=== PATIENT | female | born 1945 | race Caucasian/White ===

== ENCOUNTER 2017-02-03 19:40 | Inpatient (IN) | payer MEDICARE, OTHER ==
[~2017-02-03] VITALS: Ht 157.5 cm; Wt 85.4 kg
[2017-02-03 21:40] VITALS: BP 185/80; PULSE 87; RESP 18; TEMP 97; O2SAT 96
[2017-02-03] MEDS ORDERED: ALUMINUM/MAGNESIUM/SIMETH 30 ML CUP PO PRN ×2 (21:45→22:00)
[2017-02-03] MEDS ORDERED: MAGNESIUM HYDROXIDE SUSP 30 ML CUP PO PRN ×2 (21:45→22:00)
[2017-02-03] MEDS ORDERED: ACETAMINOPHEN 325 MG TAB PO PRN ×2 (21:45→22:00)
[2017-02-03 22:06] VITALS: BP 164/92
[2017-02-04 06:37] VITALS: BP 172/88; PULSE 84; RESP 18; TEMP 97.6; O2SAT 95
[2017-02-04] MEDS ORDERED: NICOTINE 21 MG/24 HR PATCH T-DERMAL SCH (09:00)
[2017-02-04] MEDS ORDERED: cloNIDine HCL 0.1 MG TAB PO SCH (09:00)
[2017-02-04] MEDS: cloNIDine HCL 0.1 MG TAB PO SCH ×3 (09:00→20:48)
[2017-02-04] MEDS: NICOTINE 21 MG/24 HR PATCH T-DERMAL SCH (09:00)
[2017-02-04] MEDS: LISINOPRIL 20 MG TAB PO SCH (09:00)
[2017-02-04] MEDS ORDERED: LISINOPRIL 20 MG TAB PO SCH (09:00)
[2017-02-04 09:01] LABS: ANION GAP 10 MEQ/L (5-15); BICARBONATE 25.3 MEQ/L (21.0-32.0); BLOOD UREA NITROGEN 12 MG/DL (7-18); CHLORIDE 105 MEQ/L (98-107); GLOMERULAR FILTRATION RATE 56 ML/MIN (>89); HDL CHOLESTEROL 45.4 MG/DL (40.0-60.0); LDL CHOLESTEROL 63 MG/DL (0-99); POTASSIUM 3.9 MEQ/L (3.5-5.1); SODIUM (NA) 140 MEQ/L (136-145)
[2017-02-04] MEDS ORDERED: cloNIDine HCL 0.1 MG TAB PO PRN (11:45)
[2017-02-04 12:14] VITALS: BP 160/82; PULSE 82; RESP 16
--- NOTE | 2017-02-04 14:31 | PD.CONS ---
HPI Service [facility] Consult Requested By Psychiatry team Reason for Consult Assist with medical management Primary Care Physician Non-Staff Thuy GARNICA, NSB Diagnoses: History of Present Illness Patient is a 71-year-old female with primary medical history of major depressive disorder, HTN, borderline DM, HLD, GERD who came in as a transfer from [facility] for unintentional overdose on her medication - benzo. She is now admitted to inpatient psychiatry unit for further evaluation. Consulted for medical management. Patient seen and examined today. Verified all her medical history. States she is feeling better. Denies pain and discomfort. Denies SOB/ dyspnea. Denies chest pain, palpitations, headaches, dizziness. Denies fevers, chills, n/v/d. Review of Systems Except as stated in HPI: all other systems reviewed are Neg Past Family Social History Allergies: Coded Allergies: No Known Allergies (Unverified , 02/04/17) Past Medical History HTN Borderline DM - on metformin HLD GERD Major depressive disorder Past Surgical History Hysterectomy Tonsillectomy EGD/colonoscopy Reported Medications Lisinopril Metformin Simvastatin Omeprazole Family History Both . Mother had bipolar disorder, breast cancer. Father had lung cancer. Social History Rare alcohol use Former smoker, quit 6 months ago 07/2016, 10/12-1 PPD Denies recent illicit drug use - tried cocaine in the s Physical Exam Vital Signs Vital Signs Date Time Temp Pulse Resp B/P Pulse Ox O2 Delivery O2 Flow Rate FiO2 02/04/17 12:14 82 16 160/82 02/04/17 06:37 97.6 84 18 172/88 95 02/03/17 22:06 164/92 02/03/17 21:40 97.0 87 18 185/80 96 Physical Exam GENERAL: This is a well-nourished, well-developed patient, in no apparent distress. SKIN: No rashes, ecchymoses or lesions. Warm and dry. HEAD: Atraumatic. Normocephalic. No temporal or scalp tenderness. EYES: Pupils equal round and reactive. Extraocular motions intact. No scleral icterus. No injection or drainage. ENT: Nose without bleeding. Throat without erythema. Uvula midline. Airway patent. NECK: Trachea midline. No JVD or lymphadenopathy. Supple, nontender, no meningeal signs. CARDIOVASCULAR: Regular rate and rhythm without murmurs, gallops, or rubs. RESPIRATORY: Clear to auscultation. Breath sounds equal bilaterally. No wheezes , rales, or rhonchi. GASTROINTESTINAL: Abdomen soft, non-tender, nondistended. No hepato-splenomegaly , or palpable masses. No guarding. MUSCULOSKELETAL: Extremities without clubbing, cyanosis, bilateral lower extremity trace edema. No joint tenderness, effusion, or edema noted. NEUROLOGICAL: Awake and alert. Oriented to place, self, time, situation. Motor and sensory grossly within normal limits. No focal neuro deficit. Normal speech. Laboratory Laboratory Tests Test 02/04/17 07:43 Sodium Level 140 Potassium Level 3.9 Chloride Level 105 Carbon Dioxide Level 25.3 Anion Gap 10 Blood Urea Nitrogen 12 Creatinine 0.98 Estimat Glomerular Filtration 56 Rate Random Glucose 145 Calcium Level 9.4 Triglycerides Level 161 Cholesterol Level 141 LDL Cholesterol 63 HDL Cholesterol 45.4 Cholesterol/HDL Ratio 3.10 Result Diagram: 02/04/17 0743 Assessment and Plan Problem List: (1) HTN (hypertension) ICD Code: I10 Status: Chronic (2) HLD (hyperlipidemia) ICD Code: E78.5 Status: Chronic (3) Borderline type 2 diabetes mellitus ICD Code: R73.03 Status: Chronic Assessment and Plan Patient is a 71-year-old female with primary medical history of major depressive disorder, HTN, borderline DM, HLD, GERD who came in as a transfer from [facility] for unintentional overdose on her medication - benzo. She is now admitted to inpatient psychiatry unit for further evaluation. Consulted for medical management. Overdose, major depressive disorder - managed by psychiatry team HTN - Restart home medication, lisinopril 20 mg daily, clonidine 0.1 mg every 6 hours when necessary - Monitor BP trend HLD - Restart home medication patient is on simvastatin, will do formulary atorvastatin DM 2 - Borderline. Has been on metformin 500 mg twice a day with hemoglobin A1c being checked by PCP Thuy Campos every 6 months - Check hemoglobin A1c -Restart medication GERD - Pantoprazole 20 mg daily Thank you for this consultation. We will follow patient with you. Written by Devin Khoury, acting as scribe for Dr. Childress on 02/04/17 at 14: 31. This note was transcribed by scribe [ Devin Khoury]. I, Dr. Ray Childress personally performed the history, physical exam, and medical decision making; and confirmed the accuracy of the information in the transcribed note. Authenticated by Dr. Ray Childress on 02/04/17 at 17:43. Code Status Full code Discussed Condition With Patient, nursing MarielosSukhwindernelly BUNCH Feb 04, 2017 14:31 Ray Childress MD Feb 04, 2017 17:43
[2017-02-04] MEDS: PANTOPRAZOLE SOD 20 MG DELAYED RELEASE TAB PO SCH (14:45)
--- NOTE | 2017-02-04 15:01 | HHI.HP ---
Provisional Diagnosis Admission Date Feb 03, 2017 at 21:20 [place] I. 1. Adjustment disorder with disturbance of emotions and conduct Rule out underlying depressive disorder [place] II. Deferred [place] V. GAF is 40 presently Certification of Person's Competence To Provide Express and Informed Consent I have personally examined Hong Earl , a person being served at [facility] on, Feb 04, 2017 15:01. Express and informed consent means consent voluntarily given in writing, by a competent person, after sufficient explanation and disclosure of the subject matter involved to enable the person to make a knowing and willful decision without any element of force, fraud, deceit, duress, or other form of constraint or coercion. This person is 18 years of age or older, is not now known to be incompetent to consent to treatment with a guardian advocate, and does not have a health care surrogate or proxy currently making medical treatment decisions. I have found this person to be one of the following: [x] Competent to provide express and informed consent, as defined above, for voluntary admission to this facility and is competent to provide express and informed consent for treatment. He/she has the consistent capacity to make well reasoned, willful, and knowing decisions concerning his or her medical or mental health treatment. The person fully and consistently understands the purpose of the admission for examination/placement and is fully capable of personally exercising all rights assured under [place] Incompetent to provide express and informed consent to voluntary admission, and this is incompetent to provide express and informed consent to treatment. The person must be transferred to involuntary status and a petition for a guardian advocate filed with the Circuit Court. [] Refusing to provide express and informed consent to voluntary admission but is competent to provide express and informed consent for treatment. The person must be discharged or transferred to involuntary status. Form shall be completed within 24 hours of a person's arrival at the receiving facility and filed in the clinical record of each person: 1. Admitted on a voluntary basis 2. Permitted to provide express and informed consent to his/her own treatment 3. Allowed to transfer from involuntary to voluntary status 4. Prior to permitting a person to consent to his or her own treatment after having been previously found incompetent to consent to treatment. History of Present Illness Capacity: Has Capacity HPI Ms. Delacruz is a 71-year-old female with no reported past psychiatric history who presents in transfer from [facility] under a Aleman act following a sedative hypnotic overdose. Patient was admitted to [facility] on the of this month. Documentation from [facility] reviewed. Patient was apparently fairly encephalopathic initially, although her mentation subsequently cleared. Reviewing our own electronic medical record, I see no prior psychiatric contact within our system. Patient seen and examined with nurse. Chart reviewed. Case discussed with nursing staff. On my examination today, the patient presents as fairly upbeat. She says that she made her overdose because of an accumulation of psychosocial stressors. In particular she says that there are several things around the house that need repaired and she does not have the money for this. She says that she has been thinking about making a suicide attempt for the last 6 weeks or so. She says that she has some Restoril on hand because her sleep is chronically poor, and she overdosed on about 29 Restoril tablets. She says that she was able to make this attempt even though her significant other was in the home because they sleep in separate rooms. She says that she put down plastic on the bed before taking the overdose so that she would "not leave a mess." Having survived her overdose she denies any ongoing suicidal ideation, intent or plan. She says that she believes there must be "a purpose for me to still be here." She denies low mood or anhedonia. I can elicit no feelings of hopelessness, worthlessness or morbid guilt. She does feel somewhat overwhelmed still. Sleep remains a challenge. No reported appetite difficulties. No hypomanic or manic symptoms. No audiovisual hallucinations. No evident delusions. The remainder of the psychiatric ROS is negative. Past psychiatric history: The patient denies a history of psychiatric diagnosis. She denies a history of inpatient or outpatient psychiatric treatment. She denies a history of suicide attempts. Review of Systems Except as stated in HPI: all other systems reviewed are Neg Other No reported headache, vision or hearing changes, chest pain, shortness of breath , bowel or bladder issues. No other physical complaints. Past Psych History Psychological trauma history No reported trauma history Violence risk - others (6 mos) Lower imminent risk. No homicidal ideation. No known history of violence. Violence risk - self (6 mos) Indeterminate. Patient did present initially with a serious overdose but seems to reconstituted nicely. She presently denies any suicidal ideation. She denies any personal history of suicide attempts. She does have a family history of suicide attempts and 2 maternal uncles. Substance Abuse History Drugs/Alcohol past 12 months Patient denies any current abuse of drugs or alcohol. She does admit to a history of heavy drinking in the remote past as well as experimentation with cocaine. Past Family Social History Coded Allergies: No Known Allergies (Unverified , 02/04/17) Past Medical History See electronic medical record Current Medications Medications (Trade) Dose Ordered Sig/Dorian Route Start Time Stop Time Status Last Admin (Tylenol) 650 mg Q4H PRN PO 02/03/17 21:45 (Milk Of Magnesia Liq) 30 ml DAILY PRN PO 02/03/17 21:45 02/04/17 06:29 (Mag-Al Plus Susp Liq) 30 ml Q6H PRN PO 02/03/17 21:45 (Habitrol 21 Mg Patch.24 Hr) 1 patch DAILY T-DERMAL 02/04/17 09:00 Miscellaneous Information 1 HS T-DERMAL 02/04/17 21:00 (Prinivil) 20 mg DAILY PO 02/04/17 09:00 02/04/17 09:00 (Catapres) 0.1 mg DAILY@,,21 PO 02/04/17 09:00 02/04/17 09:00 (Catapres) 0.1 mg Q6H PRN PO 02/04/17 11:45 (Glucophage) 500 mg BIDPC PO 02/04/17 18:00 (Protonix) 20 mg DAILY PO 02/04/17 14:45 (Lipitor) 20 mg HS PO 02/04/17 21:00 Family History Patient reports that her mother had bipolar disorder and her father had depression. She denies any family history of substance use disorder. She reports that 2 of her maternal uncles both completed suicide. No other family psychiatric history. Social History Patient resides in [place]. She has been living with her significant other for the past 31 years. She is previously twice. She has 4 children, 7 grandchildren and 1 great grandchild. 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 She denies any or legal history. Denies any access to guns or firearms. She says that she has lost some of her previous temple beliefs because of life adversity. Patient's Strengths (min. 2) Intelligent. Verbally fluent. Physical Exam Physical examination completed by hospitalist research consultant. On my examination today, patient appears to be well-nourished and well-developed and in no acute physical distress. No motoric abnormalities noted. Laboratories and vital signs reviewed: Vital Signs Vital Signs Date Time Temp Pulse Resp B/P Pulse Ox O2 Delivery O2 Flow Rate FiO2 02/04/17 12:14 82 16 160/82 02/04/17 06:37 97.6 95 Lab Results Item Value Date Time Sodium Level 140 MEQ/L 02/04/17 0743 Potassium Level 3.9 MEQ/L 02/04/17 0743 Chloride Level 105 MEQ/L 02/04/17 0743 Carbon Dioxide Level 25.3 MEQ/L 02/04/17 0743 Blood Urea Nitrogen 12 MG/DL 02/04/17 0743 Creatinine 0.98 MG/DL 02/04/17 0743 Random Glucose 145 MG/DL H 02/04/17 0743 Laboratories from outside hospital reviewed: CBC from the is unremarkable. Urine toxicology on initial presentation at outside hospital was positive only for benzodiazepines. Alcohol level was undetectable. Urinalysis at outside hospital was bland. Blood cultures were no growth 3 days. MRI of the brain revealed minimal periventricular and subcortical chronic small vessel disease. Mental Status Examination Patient is in hospital gown. She is well groomed. She is awake and alert and oriented 3. No motor abnormalities noted. Speech is within normal limits for rate, tone and volume. Language and fund of knowledge seemed average to a slightly above average. Memory seems intact on clinical exam. Mood is reportedly fair and affect remains full and reactive. Thought process linear. No loosening of associations. No evident delusions. Denies audiovisual hallucinations. Denies suicidal or homicidal ideation, intent or plan. Insight and judgment are unclear at present. Assessment & Plan Problem List: (1) Adjustment disorder ICD Code: F43.20 Assessment & Plan This is a 71-year-old female who presents in transfer from outside hospital under a Aleman act following a sedative hypnotic overdose. Patient reports that she made the overdose in response to the accumulation of psychosocial stressors. She does admit to feeling somewhat overwhelmed by the stressors and admits that her sleep is chronically poor. The patient denies ongoing suicidal ideation but certainly bears admission for observation given the severity of the presenting overdose. This will also hopefully allow us to determine if there is some degree of underlying depressive diathesis, although the patient denies depressive symptomatology to any significant degree now. Admit inpatient. Voluntary status. Consult with the hospitalist, who have adjusted patient's medical medications. Consult to the physical therapist. PT eval. Fall precautions. At low dose Remeron as this will help with sleep and may also treat any underlying depressive disorder. Atarax as needed for anxiety. Melatonin as needed for sleep. Vitals every shift. Counselor to see. Collateral. Disposition planning. Estimated length of stay: 3-5 days. Discharge Planning Pending outcome of observation Request HC Surrog/Guard Advoc?: No Problem Qualifiers (1) Adjustment disorder: Qualified Code: F43.25 - Adjustment disorder with mixed disturbance of emotions and conduct Raul Gray MD Feb 04, 2017 15:01
[2017-02-04] MEDS ORDERED: hydrOXYzine HCL 25 MG TAB PO PRN (16:00)
[2017-02-04] MEDS: metFORMIN HCL 500 MG TAB PO SCH (16:19)
[2017-02-04 16:29] LABS: HEMOGLOBIN A1a 1.2 %; HEMOGLOBIN A1b 0.9 %; HEMOGLOBIN Ao 83.8 %; HEMOGLOBIN F 1.7 %; HEMOGLOBIN LA1C 2.2 %; HEMOGLOBIN P3 3.7 %
[2017-02-04 18:40] VITALS: BP 155/72; PULSE 100; RESP 19; TEMP 97.5; O2SAT 96
[2017-02-04] MEDS: REMOVE OLD NICOTINE PATCH T-DERMAL SCH (20:12)
[2017-02-04] MEDS: MELATONIN 5 MG TAB PO PRN (20:47)
[2017-02-04] MEDS: MIRTAZAPINE 15 MG TAB PO SCH (20:49)
[2017-02-04] MEDS: ATORVASTATIN 20 MG TAB PO SCH (20:49)
[2017-02-04] MEDS ORDERED: REMOVE OLD NICOTINE PATCH T-DERMAL SCH (21:00)
[2017-02-05 06:12] VITALS: BP 138/63; PULSE 71; RESP 16; TEMP 96.9; O2SAT 98
[2017-02-05] MEDS: cloNIDine HCL 0.1 MG TAB PO SCH ×3 (08:59→21:01)
[2017-02-05] MEDS: LISINOPRIL 20 MG TAB PO SCH (08:59)
[2017-02-05] MEDS: PANTOPRAZOLE SOD 20 MG DELAYED RELEASE TAB PO SCH (08:59)
[2017-02-05] MEDS: metFORMIN HCL 500 MG TAB PO SCH ×2 (08:59→17:47)
[2017-02-05] MEDS: NICOTINE 21 MG/24 HR PATCH T-DERMAL SCH (09:00)
--- NOTE | 2017-02-05 13:45 | HHI.PR ---
Subjective Remarks Follow up visit HTN, borderline DM, HLD, GERD. Pt. seen and examined today. Reports she is doing well. She feels "foggy." States she got melatonin last night. Otherwise, denies pain and discomfort. Denies SOB/ dyspnea. Denies chest pain, palpitations, headaches, dizziness. Denies fevers, chills, n/v/d. Objective Vitals Vital Signs Date Time Temp Pulse Resp B/P Pulse Ox O2 Delivery O2 Flow Rate FiO2 02/05/17 06:12 96.9 71 16 138/63 98 02/04/17 18:40 97.5 100 19 155/72 96 I/O 02/04/17 02/04/17 02/04/17 02/05/17 02/05/17 02/05/17 07:00 15:00 23:00 07:00 15:00 23:00 Intake Total 0 ml 960 ml 0 ml Balance 0 ml 960 ml 0 ml Intake Oral 0 ml 960 ml 0 ml # Voids 1 1 0 Result Diagram: 02/04/17 0743 Objective Remarks GENERAL: This is a well-nourished, well-developed patient, in no apparent distress. SKIN: No rashes, ecchymoses or lesions. Warm and dry. HEAD: Atraumatic. Normocephalic. No temporal or scalp tenderness. EYES: Pupils equal round and reactive. Extraocular motions intact. No scleral icterus. No injection or drainage. ENT: Nose without bleeding. Throat without erythema. Uvula midline. Airway patent. NECK: Trachea midline. No JVD or lymphadenopathy. Supple, nontender, no meningeal signs. CARDIOVASCULAR: Regular rate and rhythm without murmurs, gallops, or rubs. RESPIRATORY: Clear to auscultation. Breath sounds equal bilaterally. No wheezes , rales, or rhonchi. GASTROINTESTINAL: Abdomen soft, non-tender, nondistended. No hepato-splenomegaly , or palpable masses. No guarding. MUSCULOSKELETAL: Extremities without clubbing, cyanosis, bilateral lower extremity trace edema. No joint tenderness, effusion, or edema noted. NEUROLOGICAL: Awake and alert. Oriented to place, self, time, situation. Motor and sensory grossly within normal limits. No focal neuro deficit. Normal speech. A/P Problem List: (1) HTN (hypertension) ICD Code: I10 Status: Chronic (2) HLD (hyperlipidemia) ICD Code: E78.5 Status: Chronic (3) Borderline type 2 diabetes mellitus ICD Code: R73.03 Status: Chronic Assessment and Plan Patient is a 71-year-old female with primary medical history of major depressive disorder, HTN, borderline DM, HLD, GERD who came in as a transfer from [facility] for unintentional overdose on her medication - benzo. She is now admitted to inpatient psychiatry unit for further evaluation. Consulted for medical management. Overdose, major depressive disorder - managed by psychiatry team HTN - Restart home medication, lisinopril 20 mg daily, clonidine 0.1 mg every 6 hours when necessary - BP trend HLD - Restart home medication patient is on simvastatin, will do formulary atorvastatin DM 2 - Borderline. Has been on metformin 500 mg twice a day with hemoglobin A1c being checked by PCP Thuy Campos every 6 months - Hemoglobin A1c 6.1 GERD - Pantoprazole 20 mg daily Discuss with patient, nursing, Dr. Monroe Weber from Hospitalist standpoint. We will sign off. Reconsult as needed. Devin Arceo Feb 05, 2017 13:45
--- NOTE | 2017-02-05 14:45 | HHI.PYPN ---
Subjective Remarks Patient seen and examined. Chart reviewed. Case discussed with nursing staff who reports patient has been a behavioral problem. On my examination today, the patient seems to be in good spirits. She says that she slept "wonderfully" last night. She denies any suicidal ideation, intent or plan. She says "I've come to the conclusion that there is a reason that I'm still here." She says that she had a visit with her son today, which went well. Denies side effects from medications. Does complain of a mild headache and requests Tylenol. Review of Systems Except as stated in HPI: all other systems reviewed are Neg Objective Alert: Yes [place]: Person, Place, Date, Situation Mood: Calm Affect: Appropriate Memory Intact: Comment (intact on clinical exam) Hallucinations: Other (no AVH) Delusions: No Delusion Type: Other (no delusions elicited) Suicidal: Ideation (denies suicidal ideation) Homicidal: Ideation (no homicidal ideation) Insight/Judgment Fair Remarks No motor abnormalities noted. Thought process linear. Grooming and hygiene good. Labs Labs reviewed. Vitals/IOs Vital Signs Date Time Temp Pulse Resp B/P Pulse Ox O2 Delivery O2 Flow Rate FiO2 02/05/17 06:12 96.9 71 16 138/63 98 Intake and Output 02/04/17 02/04/17 02/05/17 08:00 16:00 00:00 Intake Total 0 ml 960 ml Balance 0 ml 960 ml Assessment & Plan Problem List: (1) Adjustment disorder ICD Code: F43.20 Assessment & Plan Continue Remeron as ordered. Counselor to obtain collateral. Continue to monitor through the weekend on the inpatient unit. Continue other medications and care as ordered. Justification for Cont. Inpt. Monitoring for impairments in safety. Discharge Planning Monitor over the weekend. Anticipate discharge Wednesday barring some clinical deterioration. Request HC Surrog/Guard Advoc?: No Problem Qualifiers (1) Adjustment disorder: Qualified Code: F43.25 - Adjustment disorder with mixed disturbance of emotions and conduct Raul Gray MD Feb 05, 2017 14:45
[2017-02-05 18:00] VITALS: BP 157/74; PULSE 79; RESP 18; TEMP 97.6; O2SAT 99
[2017-02-05] MEDS: REMOVE OLD NICOTINE PATCH T-DERMAL SCH (21:00)
[2017-02-05] MEDS: MIRTAZAPINE 15 MG TAB PO SCH (21:01)
[2017-02-05] MEDS: ATORVASTATIN 20 MG TAB PO SCH (21:01)
[2017-02-05] MEDS: MELATONIN 5 MG TAB PO PRN (21:01)
[2017-02-06 06:22] VITALS: BP 139/67; PULSE 67; RESP 16; TEMP 97.9; O2SAT 97
[2017-02-06] MEDS: cloNIDine HCL 0.1 MG TAB PO SCH ×3 (08:35→20:47)
[2017-02-06] MEDS: PANTOPRAZOLE SOD 20 MG DELAYED RELEASE TAB PO SCH (08:35)
[2017-02-06] MEDS: LISINOPRIL 20 MG TAB PO SCH (08:35)
[2017-02-06] MEDS: metFORMIN HCL 500 MG TAB PO SCH ×2 (08:35→17:39)
[2017-02-06] MEDS: NICOTINE 21 MG/24 HR PATCH T-DERMAL SCH (08:53)
--- NOTE | 2017-02-06 11:24 | HHI.PYPN ---
Subjective Remarks Pt seen and discussed with staff. Pt reports that she is feeling better today and denies SI/HI. She states that she has been contemplating recent OD and believes that she survived because she is supposed to be alive for some purpose. She states that this has given her comfort and she is now not feeling overwhelmed and hopeless anymore. She states that her son flew from out of state to visit and she is looking forward to seeing him today. She denies SI/ HI. She states that she would like to see a therapist but is concerned about finding one in her area due to limited transportation options. Objective Alert: Yes [place]: Person, Place, Date, Situation Mood: Calm Affect: Appropriate Memory Intact: Immediate, Recent, Remote Hallucinations: Other (no AVH) Delusions: No Delusion Type: Other (no delusions elicited) Suicidal: Ideation (denies suicidal ideation) Homicidal: Ideation (no homicidal ideation) Insight/Judgment fair Vitals/IOs Vital Signs Date Time Temp Pulse Resp B/P Pulse Ox O2 Delivery O2 Flow Rate FiO2 02/06/17 06:22 97.9 67 16 139/67 97 Intake and Output 02/05/17 02/05/17 02/06/17 08:00 16:00 00:00 Intake Total 0 ml 480 ml Balance 0 ml 480 ml Assessment & Plan Problem List: (1) Adjustment disorder ICD Code: F43.20 Assessment & Plan Pt improving. continue current tx plan. Estimated LOS: days Justification for Cont. Inpt. monitoring for safety Request HC Surrog/Guard Advoc?: No Problem Qualifiers (1) Adjustment disorder: Qualified Code: F43.25 - Adjustment disorder with mixed disturbance of emotions and conduct Lorin Comer MD Feb 06, 2017 11:24
[2017-02-06 18:08] VITALS: BP 140/66; PULSE 79; RESP 18; TEMP 97; O2SAT 96
[2017-02-06] MEDS: ATORVASTATIN 20 MG TAB PO SCH (20:47)
[2017-02-06] MEDS: MIRTAZAPINE 15 MG TAB PO SCH (20:47)
[2017-02-06] MEDS: REMOVE OLD NICOTINE PATCH T-DERMAL SCH (20:47)
[2017-02-07 05:36] VITALS: BP 126/59; PULSE 76; RESP 16; TEMP 97.1; O2SAT 95
[2017-02-07 06:03] VITALS: PULSE 76; RESP 16; TEMP 97.1
[2017-02-07] MEDS: metFORMIN HCL 500 MG TAB PO SCH ×2 (08:38→17:34)
[2017-02-07] MEDS: PANTOPRAZOLE SOD 20 MG DELAYED RELEASE TAB PO SCH (08:39)
[2017-02-07] MEDS: NICOTINE 21 MG/24 HR PATCH T-DERMAL SCH (09:00)
[2017-02-07] MEDS: cloNIDine HCL 0.1 MG TAB PO SCH ×3 (09:00→20:31)
[2017-02-07] MEDS: LISINOPRIL 20 MG TAB PO SCH (09:00)
--- NOTE | 2017-02-07 12:24 | HHI.PYPN ---
Subjective Remarks Pt seen and discussed with staff. She reports that mood is good and she denies SI/HI. She reports good visit with family yesterday and is looking forward to visit today. She reports that she slept well last night. Objective Alert: Yes [place]: Person, Place, Date, Situation Mood: Calm Affect: Restricted Memory Intact: Immediate, Recent, Remote Hallucinations: Other (no AVH) Delusions: No Delusion Type: Other (no delusions elicited) Suicidal: Ideation (denies suicidal ideation) Homicidal: Ideation (no homicidal ideation) Insight/Judgment fair Vitals/IOs Vital Signs Date Time Temp Pulse Resp B/P Pulse Ox O2 Delivery O2 Flow Rate FiO2 02/07/17 06:03 97.1 76 16 02/07/17 05:36 126/59 95 Intake and Output 02/06/17 02/06/17 02/07/17 08:00 16:00 00:00 Intake Total 2640 ml Balance 2640 ml Assessment & Plan Problem List: (1) Adjustment disorder ICD Code: F43.20 Assessment & Plan Continue current tx plan. Estimated LOS: days Justification for Cont. Inpt. monitoring for safety. risk of decompensation Request HC Surrog/Guard Advoc?: No Problem Qualifiers (1) Adjustment disorder: Qualified Code: F43.25 - Adjustment disorder with mixed disturbance of emotions and conduct Lorin Comer MD Feb 07, 2017 12:24
[2017-02-07 19:27] VITALS: BP 134/65; PULSE 74; RESP 16; TEMP 98.2
[2017-02-07] MEDS: ATORVASTATIN 20 MG TAB PO SCH (20:31)
[2017-02-07] MEDS: MIRTAZAPINE 15 MG TAB PO SCH (20:31)
[2017-02-07] MEDS: MELATONIN 5 MG TAB PO PRN (20:31)
[2017-02-07] MEDS: REMOVE OLD NICOTINE PATCH T-DERMAL SCH (20:32)
[2017-02-08 05:44] VITALS: BP 146/78; PULSE 82; RESP 17; TEMP 97.6; O2SAT 97
[2017-02-08 06:00] VITALS: BP 146/78; PULSE 82; RESP 17; TEMP 97.6; O2SAT 97
[2017-02-08] MEDS: LISINOPRIL 20 MG TAB PO SCH (08:54)
[2017-02-08] MEDS: cloNIDine HCL 0.1 MG TAB PO SCH (08:54)
[2017-02-08] MEDS: metFORMIN HCL 500 MG TAB PO SCH (08:54)
[2017-02-08] MEDS: PANTOPRAZOLE SOD 20 MG DELAYED RELEASE TAB PO SCH (08:55)
[2017-02-08] MEDS: NICOTINE 21 MG/24 HR PATCH T-DERMAL SCH (08:56)
[2017-02-08] MEDS ORDERED: MIRTA15 PO (11:31)
[2017-02-08] MEDS ORDERED: PANT20 PO (11:31)
[2017-02-08] MEDS ORDERED: CLON.1 PO (11:31)
[2017-02-08] MEDS ORDERED: ATOR20TA15 PO (11:31)
[2017-02-08] MEDS ORDERED: LISI-515 PO (11:31)
[2017-02-08] MEDS ORDERED: METF500 PO (11:31)
--- NOTE | 2017-02-08 11:32 | HHI.DS ---
Psychiatry Discharge Summary Inpatient Psychiatric care?: Yes Advance Directive: No Reason Not Provided: pt unsure Mental Health AdvanceDirective: No Health Care Proxy: No Admission Admission Date Feb 03, 2017 at 21:20 Admission Diagnosis: (1) Adjustment disorder ICD Code: F43.20 Brief History Ms. Delacruz is a 71-year-old female with no reported past psychiatric history who presents in transfer from [facility] under a Aleman act following a sedative hypnotic overdose. Patient was admitted to [facility] on the of this month. Documentation from [facility] reviewed. Patient was apparently fairly encephalopathic initially, although her mentation subsequently cleared. Reviewing our own electronic medical record, I see no prior psychiatric contact within our system. Patient seen and examined with nurse. Chart reviewed. Case discussed with nursing staff. On my examination today, the patient presents as fairly upbeat. She says that she made her overdose because of an accumulation of psychosocial stressors. In particular she says that there are several things around the house that need repaired and she does not have the money for this. She says that she has been thinking about making a suicide attempt for the last 6 weeks or so. She says that she has some Restoril on hand because her sleep is chronically poor, and she overdosed on about 29 Restoril tablets. She says that she was able to make this attempt even though her significant other was in the home because they sleep in separate rooms. She says that she put down plastic on the bed before taking the overdose so that she would "not leave a mess." Having survived her overdose she denies any ongoing suicidal ideation, intent or plan. She says that she believes there must be "a purpose for me to still be here." She denies low mood or anhedonia. I can elicit no feelings of hopelessness, worthlessness or morbid guilt. She does feel somewhat overwhelmed still. Sleep remains a challenge. No reported appetite difficulties. No hypomanic or manic symptoms. No audiovisual hallucinations. No evident delusions. The remainder of the psychiatric ROS is negative. Past psychiatric history: The patient denies a history of psychiatric diagnosis. She denies a history of inpatient or outpatient psychiatric treatment. She denies a history of suicide attempts. Tobacco Use In Past 30 Days: No Tobacco Past 30 Days Alcohol Use: Never Hospital Course Patient was admitted to a locked, inpatient psychiatric unit. Appropriate precautions were in place throughout patient's hospital stay. A general medical consultation was obtained. Patient was seen and examined daily on the unit by psychiatry and also visited by counselor. Medications were adjusted. Patient tolerated medications well. There was no evidence of any suicidality or homicidality on the unit. Patient remained in good behavioral control. Charting indicates that the patient has been sleeping and eating well and participating in unit activities to a fair degree. Counselor has obtain reassuring collateral from patient's partner. On the day of discharge: Patient seen and examined. Chart reviewed. Case discussed with nursing staff who reports patient has been a behavioral problem. On my examination today, the patient is in good spirits. Her affect is bright and euthymic. She is requesting discharge from the inpatient psychiatric unit today. She denies any suicidal or homicidal ideation, intent or plan on direct questioning. Mood is reportedly improved. No depressive or hypomanic/manic symptoms at this time. No audiovisual hallucinations, and I can elicit no delusional beliefs. She is future oriented and optimistic. She denies significant side effects from medications but would like to see if her Remeron could be tapered somewhat as it does leave her feeling somewhat "dopey" in the mornings, and I will taper to 7.5mg qHS. No physical complaints. Weighing the acute, chronic, and protective factors and based on the available evidence, I drawer in stitch bonding machine to a reasonable degree of medical certainty that the patient is at low imminent risk of harm to self or others from a mental illness as defined under the Aleman act and her level of function is adequate for outpatient care. Consequently, the patient does not meet criteria for involuntary psychiatric hospitalization at this time. Given that the patient is requesting discharge from the inpatient psychiatric unit and does not meet criteria for involuntary psychiatric hospitalization, I must arrange for her discharge home today with psychiatric follow-up as arranged by counselor. Patient is also to follow-up with primary care. I have counseled the patient regarding warning signs for need to return to the psychiatric emergency room as part of the general safety plan. Results Blood Pressure 146 / 78 Vital Signs Date Time Temp Pulse Resp B/P Pulse Ox O2 Delivery O2 Flow Rate FiO2 02/08/17 06:00 97.6 82 17 146/78 97 Laboratory Results Test 02/04/17 07:43 Hemoglobin A1c 6.1 % (4.3-6.0) Triglycerides Level 161 MG/DL (42-150) Cholesterol Level 141 MG/DL (120-200) LDL Cholesterol 63 MG/DL (0-99) HDL Cholesterol 45.4 MG/DL (40.0-60.0) Summary of Procedures None done Imaging None done Pending results at discharge: No Medications # of Antipsychotic meds at D/C: 0 Approp Antipsych med options 1 - Minimum of three failed multiple trials of monotherapy. 2 - Documented plan to taper to monotherapy due to previous use of multiple meds OR cross-taper in progress at D/C. 3 - Documentation of augmentation of Clozapine. 4 - Justification other than those listed in allowable values 1-3, document here : Discharge Discharge Date: February 08, 2017 Discharge Diagnosis: (1) Adjustment disorder Diagnosis: Principal (resolved) ICD Code: F43.20 GAF on discharge is 60 Mental Status Exam at Disch Patient is casually dressed. She is well groomed and maintaining basic hygiene. She is awake and alert and oriented 3. No evidence of delirium. No abnormal motor movements noted. Speech is within normal limits for rate, tone and volume. Memory is intact. Language and fund of knowledge seem at least average. Mood is euthymic and affect is full and reactive. Thought process linear. No loosening of associations. No evident delusions. No audiovisual hallucinations. Denies suicidal or homicidal ideation, intent or plan. Insight and judgment are fair. Pt Condition on Discharge: Stable Discharge Disposition: Discharge Home Discharge Instructions Diet Instructions: Heart Healthy Diet Activities you can perform: Weight Bearing as Mary Scheduled Appointment: as per counselor's notes New Medications: Atorvastatin (Atorvastatin) 20 Mg Tab 20 MG PO HS Cholesterol Management Days 15 Ref 1 TAB Clonidine (Catapres) 0.1 Mg Tab 0.1 MG PO DAILY@09,17,21 Blood Pressure Management Days 15 Ref 1 TAB Lisinopril (Lisinopril) 20 Mg Tab 20 MG PO DAILY Blood Pressure Management Days 15 Ref 1 TAB Metformin (Glucophage) 500 Mg Tab 500 MG PO BIDPC Blood Sugar Management Days 15 Ref 1 TAB Mirtazapine (Mirtazapine) 15 Mg Tab 7.5 MG PO HS Ok to dispense in any strength if more economical for pt so long as dose remains the same. Mental Health Days 15 Ref 1 TAB Pantoprazole (Protonix) 20 Mg Tab 20 MG PO DAILY Health Days 15 Ref 1 TAB Discharge Time <= 30 minutes Discharge/Advance Care Plan Health Problems: (1) Adjustment disorder Goals to promote your health * To prevent worsening of your condition and complications * To maintain your health at the optimal level Directions to meet your goals Take your medications as prescribed Follow your dietary instruction Follow activity as directed Keep your appointments as scheduled Take your immunizations and boosters as scheduled If your symptoms worsen call your PCP, if no PCP go to Urgent Care Center or Emergency Room For 03/05 questions related to your inpatient stay or results of tests pending at discharge, please contact Dr. Raul Gray at Smoking is Dangerous to Your Health. Avoid second hand smoking Problem Qualifiers (1) Adjustment disorder: Qualified Code: F43.25 - Adjustment disorder with mixed disturbance of emotions and conduct Raul Gray MD February 08, 2017 11:32
== END 2017-02-08 14:10 | disposition home or self-care (01) | DRG 882 ==
LOC: H250 21:20
PROVIDERS: ADMIT Psychiatry & Neurology Psychiatry; ATTEND Psychiatry & Neurology Psychiatry
DX: F43.25 Adjustment disorder with mixed disturbance of emotions and conduct (principal); E11.9 Type 2 diabetes mellitus without complications; I10 Essential (primary) hypertension; Z91.5 Personal history of self-harm; Z81.8 Family history of other mental and behavioral disorders; E78.5 Hyperlipidemia, unspecified; K21.9 Gastro-esophageal reflux disease without esophagitis; Z87.891 Personal history of nicotine dependence
CPT/HCPCS: 80048; 80061; 83036